=== PATIENT | male | born 1980 | race Caucasian/White ===

== ENCOUNTER → 2018-03-28 13:05 | Outpatient (CLI) | payer MEDICARE | END | disposition home or self-care (01) | LOC: D.US 13:00 | DX: K58.2 Mixed irritable bowel syndrome (principal) ==

== ENCOUNTER 2019-03-19 08:33 | Emergency (ER) | payer MEDICARE ==
[~2019-03-19] VITALS: Ht 170.2 cm; Wt 65.9 kg
[2019-03-19 08:37] VITALS: Ht 170.2 cm; Wt 65.9 kg
[2019-03-19] MEDS ORDERED: XANAX2 MG PO (08:39)
[2019-03-19 10:07] LABS: BASOPHILS 0.1 % (0-2); EOSINOPHILS 0.3 % (0-7); HEMATOCRIT 39.1 % (42.0-54.0); HEMOGLOBIN 13.4 g/dL (13.5-17.5); IMMATURE GRANULOCYTES 0.3 % (0-5); LYMPHOCYTES 10.4 % (15-50); MCH 30.2 pg (26.0-34.0); MCHC 34.3 g/dL (31.0-37.0); MCV 88.1 fL (80.0-100.0); MEAN PLATELET VOLUME 10.1 fL (7.4-10.4); NEUTROPHILS 81.9 % (40-80); PLATELET COUNT 243 10x3/uL (130-400); RBC 4.44 10x6/uL (4.20-6.10); RDW 13.2 % (11.5-14.5); WBC 15.8 10x3/uL (4.8-10.8)
[2019-03-19 10:09] LABS: ALBUMIN 3.9 g/dL (3.4-5.0); ALKALINE PHOSPHATASE 80 U/L (46-116); ALT (SGPT) 42 U/L (10-68); BILIRUBIN - TOTAL 1.05 mg/dL (0.2-1.3); CALC OSMOLALITY 270 mosm/kg (275-300); CALCIUM 8.4 mg/dL (8.5-10.1); CARBON DIOXIDE 23.8 mmol/L (21.0-32.0); CHLORIDE - SERUM 99 mmol/L (98-107); CREATININE - SERUM 0.8 mg/dL (0.6-1.3); GLUCOSE 136 mg/dL (74-106); POTASSIUM - SERUM 3.1 mmol/L (3.5-5.1); PROTEIN - SERUM 7.2 g/dL (6.4-8.2); SODIUM 135 mmol/L (136-145); UREA NITROGEN 10 mg/dL (7-18); eGFR NON AFRICAN AMERICAN > 90 mL/min (90-120)
[2019-03-19 10:34] LABS: APTT 33.6 SECONDS (22.8-39.4); INR 1.05 (0.85-1.17); PROTIME 13.2 SECONDS (11.6-15.0)
[2019-03-19 15:11] VITALS: BP 116/73
== END 2019-03-19 15:13 | disposition other institution (70) ==
LOC: D.ER 08:33
PROVIDERS: Family Medicine
DX: S12.100A Unspecified displaced fracture of second cervical vertebra, initial encounter for closed fracture (principal); V29.9XXA Motorcycle rider (driver) (passenger) injured in unspecified traffic accident, initial encounter; Y93.89 Activity, other specified; Y92.89 Other specified places as the place of occurrence of the external cause; M79.18 Myalgia, other site; S00.01XA Abrasion of scalp, initial encounter

== ENCOUNTER 2020-05-05 21:13 | Emergency (ER) | payer MEDICARE, MEDICAID ==
[~2020-05-05] VITALS: Ht 170.2 cm; Wt 68.2 kg
[~2020-05-05 21:13] MED LIST: XANAX2 MG PO
[2020-05-05 21:22] VITALS: BP 141/103; Ht 170.2 cm; Wt 68.2 kg
== END 2020-05-05 22:22 | disposition home or self-care (01) ==
LOC: D.ER 21:13
DX: R44.1 Visual hallucinations (principal); Z76.0 Encounter for issue of repeat prescription